=== PATIENT | female | born 1950 | race Caucasian/White ===

== ENCOUNTER → 2017-08-14 | Outpatient (CLI) | payer MEDICARE, OTHER ==
[~2017-08-14] MED LIST: MVI PO; [UNRECOGNIZED DRUG - OTHER] PO
== END ==
LOC: MC.RAD 16:26
DX: Z12.31 Encounter for screening mammogram for malignant neoplasm of breast (principal)

== ENCOUNTER → 2018-11-12 | Outpatient (CLI) | payer MEDICARE, OTHER | LOC: MC.RAD 10:06 | DX: Z12.31 Encounter for screening mammogram for malignant neoplasm of breast (principal); Z98.82 Breast implant status ==

== ENCOUNTER → 2019-06-18 | Outpatient (CLI) | payer MEDICARE, OTHER | LOC: MC.RAD 06-13 09:00 | DX: N63.20 Unspecified lump in the left breast, unspecified quadrant (principal) ==

== ENCOUNTER 2019-07-23 07:08 | Day surgery (SDC) | payer MEDICARE, OTHER ==
[~2019-07-23] VITALS: Ht 162.6 cm; Wt 56.5 kg
[2019-07-23 07:22] VITALS: BP 110/55; PULSE 73; TEMP 97.2
[2019-07-23] MEDS ORDERED: MULTIPLE VITAMI1 CAP PO (07:23)
[2019-07-23] MEDS ORDERED: CHLOR TRIMETON 44 MG PO (07:24)
[2019-07-23 08:30] VITALS: BP 108/64; PULSE 83; TEMP 97
--- NOTE | 2019-07-23 08:30 | NUR ---
The patient arrived back to [facility] from the [facility]oscopy suite at this time. The patient appears drowsy but easily arousable. The patient ambulated from the cart to the recliner in her room with the stand by assistance of two nurses and appeared to tolerate the activity well. Post procedure vital signs were started at this time. The patient's is at her bedside and has spoke with the doctor regarding the findings of the procedure. Call light is within reach. Will continue to monitor the patient.
[2019-07-23 08:45] VITALS: BP 81/40; PULSE 63
--- NOTE | 2019-07-23 08:45 | NUR ---
The patient appears to be resting quietly in the recliner with her eyes closed. Respirations even and unlabored. The patient is easily arousable and agrees to try some orange juice at this time. Vital sign remain stable. is at her bedside. Will continue to monitor the patient.
[2019-07-23 09:00] VITALS: BP 80/39; PULSE 56
--- NOTE | 2019-07-23 09:00 | NUR ---
The patient appears to be toleraing the juice well without any complaints of nausea. Vital signs remain stable. The patient's remains at her bedside at this time. Will continue to monitor the patient.
[2019-07-23 09:20] VITALS: BP 88/50; PULSE 53
--- NOTE | 2019-07-23 09:20 | NUR ---
Discharge instructions were reviewed with the patient and her at this time. The patient's IV to her right wrist was removed and a pressure dressing was applied to the site. The patient requests to try a muffin prior to discharge. The nurse instructed the patient to get dressed after she finishes eating and notify the nurse when she is ready to be escorted out.
--- NOTE | 2019-07-23 09:45 | NUR ---
The patient was escorted out via wheelchair to a private vehilce by TRINA Bender. The patient's belongings and discharge paperwork were sent with her. The patient's is present to drive her home.
== END 2019-07-23 09:45 | disposition home or self-care (01) ==
LOC: SDCO 07:08
DX: Z12.11 Encounter for screening for malignant neoplasm of colon (principal); Z88.0 Allergy status to penicillin
CPT/HCPCS: J2250; J3010; J7030

== ENCOUNTER → 2019-11-29 | Outpatient (CLI) | payer MEDICARE, OTHER ==
[~2019-11-29] MED LIST changes: +CHLOR TRIMETON 44 MG PO; +MULTIPLE VITAMI1 CAP PO
== END ==
LOC: MC.RAD 10:56
DX: Z12.31 Encounter for screening mammogram for malignant neoplasm of breast (principal)

== ENCOUNTER → 2020-11-30 | Outpatient (CLI) | payer MEDICARE, OTHER | LOC: MC.RAD 13:31 | DX: Z12.31 Encounter for screening mammogram for malignant neoplasm of breast (principal) ==

== ENCOUNTER → 2021-12-27 | Outpatient (CLI) | payer MEDICARE, OTHER | LOC: MC.RAD 09:52 | DX: Z12.31 Encounter for screening mammogram for malignant neoplasm of breast (principal) ==

== ENCOUNTER → 2023-03-01 | Outpatient (CLI) | payer MEDICARE, OTHER | LOC: MC.RAD 11:29 | DX: Z12.31 Encounter for screening mammogram for malignant neoplasm of breast (principal) ==